=== PATIENT | female | born 1985 | race Caucasian/White ===

== ENCOUNTER 2020-11-05 19:38 | Emergency (ER) | payer OTHER ==
[~2020-11-05] VITALS: Ht 165.1 cm; Wt 136.1 kg
[2020-11-05 19:52] VITALS: BP 175/106; Ht 165.1 cm; Wt 136.1 kg
[2020-11-05 21:10] LABS: BASOPHIL % 0.9 % (0.2-1.3); PLATELET COUNT 226 x10^3mcL (179-408); RED CELL DISTRIBUTION WIDTH 13.9 % (12.3-17.7)
[2020-11-05 21:18] LABS: CALCIUM 9.5 mg/dL (8.5-10.1); CARBON DIOXIDE 26.8 mmol/L (21-32); CHLORIDE SERUM 106 mmol/L (98-107); CREATININE SERUM 1.1 mg/dL (0.6-1.0); GFR1 > 60 mL/min; GLUCOSE SERUM 101 mg/dL (74-106); POTASSIUM SERUM 4.4 mmol/L (3.5-5.1); SODIUM SERUM 144 mmol/L (136-145)
[2020-11-05 21:22] LABS: ALKALINE PHOSPHATASE 104 U/L (46-116); ALT/SGPT 56 U/L (14-59); AST/SGOT 17 U/L (15-37); BILIRUBIN TOTAL 0.4 mg/dL (0.20-1.00); TOTAL PROTEIN, SERUM 7.6 g/dL (6.4-8.2)
[2020-11-05] MEDS ORDERED: ACETAMINOPHEN-H1 TA1 PO (22:36)
== END 2020-11-05 23:02 | disposition home or self-care (01) ==
LOC: ED 19:38
PROVIDERS: Emergency Medicine
DX: R10.30 Lower abdominal pain, unspecified (principal); Z88.2 Allergy status to sulfonamides; Z88.6 Allergy status to analgesic agent; Z88.0 Allergy status to penicillin; Z90.710 Acquired absence of both cervix and uterus
CPT/HCPCS: J1200; Q9967